=== PATIENT | male | born 1940 | race Caucasian/White ===

== ENCOUNTER 2021-02-06 14:16 | Emergency (ER) | payer OTHER, MEDICARE ==
[2021-02-06 14:44] LABS: #Eosinphils 0.2 thou/uL (0.0-0.7); #Lymphocytes 1.6 thou/uL (1.20-3.40); #Monocytes 0.7 thou/uL (0.11-0.59); %Basophils 0.2 % (0.0-1.0); %Eosinophils 1.7 % (0.0-10.0); %Lymphocytes 17.1 % (21.0-51.0); %Monocytes 7.5 % (0.0-10.0); %Neutrophils 73.5 % (42.0-75.0); Hemoglobin 13.7 g/dL (14.0-18.0); Mean Corpuscular HGB CONC 32.8 g/dL (32.0-36.0); Mean Corpuscular Hemoglobin 32.2 pg (27.0-31.0); Mean Corpuscular Volume 98.2 fL (78.0-98.0); Mean Platelet Volume 9.9 fL (7.4-10.4); Platelet Count 155 thou/uL (130-400); RBC Distribution Width 12.4 % (11.5-14.5); Red Blood Cell (RBC) Count 4.24 mill/uL (4.70-6.10); White Blood Cell (WBC) Count 9.5 thou/uL (4.8-10.8)
[2021-02-06 14:56] LABS: INR-International Normal Ratio 1.1; PTT 34.2 sec (22.9-36.1); Prothrombin Time 14.1 sec (12.0-14.7)
[2021-02-06 15:07] LABS: ALT (SGPT) 14 U/L (8-55); AST (SGOT) 23 U/L (5-34); Albumin 3.8 g/dL (3.4-4.8); Alkaline Phosphatase 70 U/L (40-110); Anion Gap 13 mmol/L (10-20); BUN (Urea Nitrogen) 15 mg/dL (8.4-25.7); Bilirubin, Total 0.6 mg/dL (0.2-1.2); Calc. Creatinine Clearance 0 mL/min (70-130); Calcium 9.7 mg/dL (7.8-10.44); Carbon Dioxide 25 mmol/L (23-31); Chloride 105 mmol/L (98-107); Globulin 2.9 g/dL (2.4-3.5); Glucose 94 mg/dL (83-110); Potassium 4.4 mmol/L (3.5-5.1); Protein, Total 6.7 g/dL (5.8-8.1); Sodium 139 mmol/L (136-145)
[2021-02-06] MEDS ORDERED: Morphine 4 MG/ML VIAL ONE (18:08)
[2021-02-06] MEDS ORDERED: Ondansetron PF 4 MG/2 ML Vial ONE (18:08)
[2021-02-06] MEDS ORDERED: Ibuprofen 200 MG TAB ONE (18:08)
[2021-02-06] MEDS ORDERED: Ketorolac Tromethamine 30 MG/ML VIAL ONE (18:53)
[2021-02-06] MEDS ORDERED: HYDROcodone/Acetaminophen 5/325 mg Tablet ONE (18:53)
== END 2021-02-06 19:20 | disposition home or self-care (01) ==
LOC: ERS 14:16
DX: S22.41XA Multiple fractures of ribs, right side, initial encounter for closed fracture (principal); S12.040A Displaced lateral mass fracture of first cervical vertebra, initial encounter for closed fracture; R91.8 Other nonspecific abnormal finding of lung field; J44.9 Chronic obstructive pulmonary disease, unspecified; V89.2XXA Person injured in unspecified motor-vehicle accident, traffic, initial encounter
CPT/HCPCS: 36415; 70450; 71045; 71250; 72125; 80053; 85025; 85610; 85730; 86850; 86900; 86901; 96372; 96374; 96375; G0390; J1885; J2270; J2405